=== PATIENT | female | born 1975 | race Caucasian/White ===

== ENCOUNTER → 2020-06-12 09:48 | Outpatient (CLI) | payer OTHER, SELFPAY ==
--- NOTE | ~2020-06-12 | XR_ITS ---
EXAMINATION: XR knee RT 3V DATE: 06/12/2020 10:02 INDICATION: Right knee TECHNIQUE: Three views of the right knee were obtained. COMPARISON: 117 FINDINGS: Alignment is normal. No fracture or osteochondral lesion. There is mild tricompartmental os teoarthritis characterized by marginal osteophytes. No joint effusion/synovitis. Soft tissues are un remarkable. IMPRESSION: 1. Mild right knee osteoarthritis without acute abnormality. Reviewed, dictated and finalized at location A. [employer]
--- NOTE | ~2020-06-12 | XR_ITS ---
EXAMINATION: XR knee LT 3V DATE: 06/12/2020 10:02 INDICATION: Right knee pain TECHNIQUE: Standing AP, lateral and sunrise views of the left knee were obtained COMPARISON: 06/01/2012 FINDINGS: Alignment is normal. No fracture. Mild tricompartmental osteoarthritis with small marginal osteophyt es but relatively preserved joint spaces in all 3 compartments. No joint effusion/layering lipohemart hrosis. Soft tissues are unremarkable. IMPRESSION: 1. Mild tricompartmental osteoarthritis. Reviewed, dictated and finalized at location A. [employer]
== END ==
PROVIDERS: PCP Family Medicine; Visit Provider Physician Assistant
DX: M17.0 Bilateral primary osteoarthritis of knee (principal)
CPT/HCPCS: 73562

== ENCOUNTER 2024-01-25 09:52 | Outpatient (CLI) | payer OTHER, SELFPAY ==
--- NOTE | ~2024-01-25 | XR_ITS ---
XR sacroiliac joints min 3V Ordering provider: Nikkie Harry MD History: . M53.3 - Sacrococcygeal disorders, not elsewhere classified . Comparison: None. FINDINGS: BONES: No acute fracture or dislocation. JOINTS: The bilateral sacroiliac joint spaces appear well maintained. No bony fusion of the sacroilia c joints or bony erosions. Degenerative changes of the spine. SOFT TISSUES: Unremarkable. IMPRESSION: NO ACUTE OSSEOUS ABNORMALITY. NORMAL SACROILIAC JOINTS. Reviewed, dictated and finalized at location A.
--- NOTE | ~2024-01-25 | XR_ITS ---
3 VIEWS LUMBAR SPINE Ordering provider: Nikkie Harry MD History: . M54.50 - Low back pain, unspecified . Comparison: None. FINDINGS: VERTEBRAL BODIES: No visible fracture or subluxation. Loss of lordosis suggestive of muscle spasm. DISK SPACES: Narrowing of the disc L2-L3, L3-L4, L4-L5 and L5-S1. Multilevel facet joint disease. SOFT TISSUES: Normal. IMPRESSION: No acute osseous abnormality lumbar spine. Muscle spasm with loss of lordosis of the spine. Multilevel degenerative disc disease. Reviewed, dictated and finalized at location A.
== END 2024-01-25 09:53 ==
LOC: MICIMG 09:54
PROVIDERS: PCP Family Medicine; Visit Provider Family Medicine
DX: M51.36 Other intervertebral disc degeneration, lumbar region (principal); M62.830 Muscle spasm of back; M53.3 Sacrococcygeal disorders, not elsewhere classified
CPT/HCPCS: 72110; 72202